=== PATIENT | female | born 1980 | race American Indian/Alaskan Native ===

== ENCOUNTER 2017-10-30 21:19 | Inpatient (IN) | payer SELFPAY ==
[2017-10-30] MEDS ORDERED: TYLENOL ONE (22:20)
[2017-10-30 22:50] LABS: Hematocrit 29.3 % (30.3-42.9); Hemoglobin 9.8 gm/dl (10.1-14.3); Mean Corpuscular HGB Conc 34 % (30-34); Mean Corpuscular Volume 77 fl (79-97); Platelet Count 458 K/mm3 (140-440); Red Blood Count 3.82 M/mm3 (3.65-5.03)
[2017-10-30 22:51] LABS: Mean Corpuscular Hemoglobin 26 pg (28-32)
[2017-10-30 23:10] LABS: BUN/Creatinine Ratio 11; Blood Urea Nitrogen 16 mg/dL (7-17); Calcium 9.1 mg/dL (8.4-10.2); Hemolysis Index 5
--- NOTE | 2017-10-30 23:52 | XRay Report ---
FINAL REPORT PROCEDURE: XR SPINE LUMBOSACRAL 2-3V TECHNIQUE: Lumbar spine radiographs, frontal and lateral views. CPT 44277 HISTORY: lower back pain COMPARISON: No prior studies are available for comparison. FINDINGS: Alignment: Normal . Vertebral body heights/Disk spaces: Normal . Fracture(s): None . Facets: Normal . Bone mineralization: Moderate degree marginal osteophyte formation is noted at L2-3 on the left.. IMPRESSION: Moderate degree marginal osteophyte formation at L2-3 Otherwise unremarkable study
--- NOTE | 2017-10-31 00:13 | Cat Scan Report ---
FINAL REPORT EXAM: CT HEAD/BRAIN WO CON HISTORY: head and neck injury COMPARISON: None available. TECHNIQUE: Axial images obtained skull base through vertex. FINDINGS: No acute intracranial hemorrhage, midline shift or pathologic extra axial fluid collection. Mild asymmetry lateral ventricles, benign variant. Ventricles and cisterns are normal in size and configuration for the patient's age. Tomlin-white differentiation preserved. Calvarium grossly intact. Visualized para-nasal sinuses and mastoid air cells are clear. Visualized ocular globes are grossly unremarkable. IMPRESSION: No grossly acute intracranial abnormality.
--- NOTE | 2017-10-31 00:16 | Cat Scan Report ---
FINAL REPORT EXAM: CT CERVICAL SPINE WO CON HISTORY: head and neck injury COMPARISON: None available. TECHNIQUE: Axial images obtained through the cervical spine. Additional sagittal and coronal reformatted images were obtained. FINDINGS: Normal lordotic curvature of the cervical spine. Cervical vertebral body heights are preserved. No acute fracture or traumatic subluxation. Odontoid process, articular pillars and occipital condyles are intact. Mild loss of disc height C4-C5 level. Mild to moderate canal stenosis and moderate bilateral foraminal narrowing due to endplate osteophyte and uncovertebral hypertrophy at that level. IMPRESSION: No acute fracture or subluxation of the cervical spine. Moderate focal degenerative changes C4-C5 level.
[2017-10-31] MEDS ORDERED: TYLENOL PO ONE (01:16)
[2017-10-31 02:32] LABS: Basophils % (Manual) 0 % (0.0-1.8); Hypochromasia 1+; Platelet Estimate Consistent w Auto; Total Cells Counted 100
--- NOTE | 2017-10-31 06:28 | Emergency Department Report ---
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 She slipped and fell 2 days ago. She complained of some upper back pain neck pain and stated she hit her head. She had radiographic imaging prior to my arrival which shows some focal arthritic change but no fracture or subluxation. CT the head was negative. The patient tells me however the reason she came to the emergency department was because of substernal chest pain rather than the fall. This began at about 11 PM last night and was somewhat persistent. She stated that she has some tingling of her hands and her feet. She complains of some vague shortness of breath but no cough. The chest pain was nonpleuritic not associated with diaphoresis nausea or vomiting. She's had no prior chest pain workup. 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 Loss of Consciousness: none Prolonged Down Time?: no Symptoms Prior to Fall: none Location: head, neck, back (upper back) Severity: moderate Quality: aching Context: tripped/slipped Associated Symptoms: denies - Related Data Home Medications Medication Instructions Recorded Confirmed Last Taken Exforge Hct 10-320-25 mg Tab 1 tab PO DAILY 10/30/17 10/30/17 Unknown LORazepam 1 mg PO BID PRN 10/30/17 10/30/17 Unknown Lasix 10 mg PO DAILY 10/30/17 10/30/17 Unknown Xanax 1 mg PO HS 10/30/17 10/30/17 Unknown Allergies Allergy/AdvReac Type Severity Reaction Status Date / Time tramadol Allergy Itching Verified 10/30/17 22:24 ED Review of Systems ROS: Stated complaint: CHEST PAIN Other details as noted in HPI Constitutional: denies: chills, fever Eyes: denies: eye pain, eye discharge, vision change ENT: denies: ear pain, throat pain Respiratory: shortness of breath. denies: cough, wheezing Cardiovascular: chest pain. denies: palpitations Endocrine: no symptoms reported Gastrointestinal: denies: abdominal pain, nausea, diarrhea Genitourinary: denies: urgency, dysuria, discharge Musculoskeletal: denies: back pain, joint swelling, arthralgia Skin: denies: rash, lesions Neurological: denies: headache, weakness, paresthesias Psychiatric: denies: anxiety, depression Hematological/Lymphatic: denies: easy bleeding, easy bruising ED Past Medical Hx - Past Medical History Hx Hypertension: Yes Hx Psychiatric Treatment: Yes (Anxiety) Additional medical history: Obesity - Surgical History Additional Surgical History: Right kidney biopsy, C-sections X 4. - Social History Smoking Status: Never Smoker Substance Use Type: None - Medications Home Medications: Home Medications Medication Instructions Recorded Confirmed Last Taken Type Exforge Hct 10-320-25 mg Tab 1 tab PO DAILY 10/30/17 10/30/17 Unknown History LORazepam 1 mg PO BID PRN 10/30/17 10/30/17 Unknown History Lasix 10 mg PO DAILY 10/30/17 10/30/17 Unknown History Xanax 1 mg PO HS 10/30/17 10/30/17 Unknown History ED Physical Exam - General Limitations: No Limitations General appearance: alert, in no apparent distress - Head Head exam: Present: atraumatic, normocephalic - Eye Eye exam: Present: normal appearance, PERRL, EOMI. Absent: scleral icterus - ENT ENT exam: Present: mucous membranes moist - Neck Neck exam: Present: normal inspection. Absent: tenderness, meningismus - Respiratory Respiratory exam: Present: normal lung sounds bilaterally. Absent: respiratory distress - Cardiovascular Cardiovascular Exam: Present: regular rate, normal rhythm. Absent: systolic murmur, diastolic murmur, rubs, gallop - GI/Abdominal GI/Abdominal exam: Present: soft, normal bowel sounds. Absent: distended, tenderness, guarding, rebound, rigid - Extremities Exam Extremities exam: Present: normal inspection. Absent: tenderness, normal capillary refill, calf tenderness - Back Exam Back exam: Present: normal inspection, other (mild nonfocal) - Neurological Exam Neurological exam: Present: alert, oriented X3, CN II-XII intact. Absent: motor sensory deficit - Psychiatric Psychiatric exam: Present: normal affect, normal mood - Skin Skin exam: Present: warm, dry, intact, normal color. Absent: rash ED Course Vital Signs 10/30/17 10/31/17 10/31/17 22:05 03:30 03:45 Temperature 98.3 F Pulse Rate 80 88 Respiratory 16 16 Rate Blood Pressure 137/85 Blood Pressure 129/95 [Left] O2 Sat by Pulse 99 100 100 Oximetry 10/31/17 10/31/17 10/31/17 04:00 05:00 06:00 Temperature Pulse Rate 84 72 Respiratory 16 12 Rate Blood Pressure 129/95 130/84 127/72 Blood Pressure [Left] O2 Sat by Pulse 100 Oximetry 10/31/17 10/31/17 10/31/17 07:00 07:19 08:04 Temperature Pulse Rate 93 H 66 Respiratory 14 14 15 Rate Blood Pressure 136/66 Blood Pressure [Left] O2 Sat by Pulse 100 100 Oximetry 10/31/17 10/31/17 09:00 10:00 Temperature Pulse Rate 55 L 61 Respiratory 13 16 Rate Blood Pressure 116/62 124/71 Blood Pressure [Left] O2 Sat by Pulse Oximetry - Reevaluation(s) Reevaluation #1: The patient's chest pain score was 0-3. Wrist GOLDEN score was 0. She was nonetheless admitted to the hospitalist service for further evaluation of her chest pain. Her trauma studies did not show anything acute. Further diagnostic evaluation by orthopedics and other diagnostic imaging may be appropriate upon hospitalization. This will be per hospitalist service. ED Medical Decision Making - Lab Data Result diagrams: 10/30/17 22:33 10/30/17 22:33 Laboratory Results - last 24 hr 10/30/17 10/30/17 10/30/17 22:33 22:33 22:33 WBC 8.3 RBC 3.82 Hgb 9.8 L Hct 29.3 L MCV 77 L MCH 26 L MCHC 34 RDW 18.0 H Plt Count 458 H Add Manual Diff Complete Total Counted 100 Seg Neuts % (Manual) 68.0 Band Neutrophils % 0 Lymphocytes % (Manual) 28.0 Reactive Lymphs % (Man) 0 Monocytes % (Manual) 1.0 Eosinophils % (Manual) 3.0 Basophils % (Manual) 0 Metamyelocytes % 0 Myelocytes % 0 Promyelocytes % 0 Blast Cells % 0 Nucleated RBC % Not Reportable Seg Neutrophils # Man 5.6 Band Neutrophils # 0.0 Lymphocytes # (Manual) 2.3 Abs React Lymphs (Man) 0.0 Monocytes # (Manual) 0.1 Eosinophils # (Manual) 0.2 Basophils # (Manual) 0.0 Metamyelocytes # 0.0 Myelocytes # 0.0 Promyelocytes # 0.0 Blast Cells # 0.0 WBC Morphology Not Reportable Hypersegmented Neuts Not Reportable Hyposegmented Neuts Not Reportable Hypogranular Neuts Not Reportable Smudge Cells Not Reportable Toxic Granulation Not Reportable Toxic Vacuolation Not Reportable Dohle Bodies Not Reportable Pelger-Huet Anomaly Not Reportable Edie Rods Not Reportable Platelet Estimate Consistent w auto Clumped Platelets Not Reportable Plt Clumps, EDTA Not Reportable Large Platelets Not Reportable Giant Platelets Not Reportable Platelet Satelliting Not Reportable Plt Morphology Comment Not Reportable RBC Morphology Not Reportable Dimorphic RBCs Not Reportable Polychromasia Not Reportable Hypochromasia 1+ Poikilocytosis Not Reportable Anisocytosis Not Reportable Microcytosis Not Reportable Macrocytosis Not Reportable Spherocytes Not Reportable Pappenheimer Bodies Not Reportable Sickle Cells Not Reportable Target Cells Not Reportable Tear Drop Cells Not Reportable Ovalocytes Not Reportable Helmet Cells Not Reportable Gilliam-Metcal[place] Bodies Not Reportable [place] Rings Not Reportable [place] Cells Not Reportable Bite Cells Not Reportable Crenated Cell Not Reportable Elliptocytes Not Reportable Acanthocytes (Spur) Not Reportable Rouleaux Not Reportable Hemoglobin C Crystals Not Reportable Schistocytes Not Reportable Malaria parasites Not Reportable Abbe Bodies Not Reportable Hem Pathologist Commnt No Sodium 137 Potassium 3.6 Chloride 98.4 Carbon Dioxide 25 Anion Gap 17 BUN 16 Creatinine 1.4 H Estimated GFR 51 BUN/Creatinine Ratio 11 Glucose 93 Calcium 9.1 Troponin T < 0.010 HCG, Qual Negative - EKG Data -: EKG Interpreted by Me EKG shows normal: sinus rhythm, axis, intervals, QRS complexes, ST-T waves Rate: normal - EKG Data Interpretation: nonspecific ST-T wave yu (somewhat low voltage) - Radiology Data Radiology results: report reviewed interpreted by me: Chest x-ray no acute process Critical care attestation.: If time is entered above; I have spent that time in minutes in the direct care of this critically ill patient, excluding procedure time. ED Disposition Clinical Impression: Chest pain Qualifiers: Chest pain type: unspecified Qualified Code(s): R07.9 - Chest pain, unspecified Cervical sprain Qualifiers: Encounter type: initial encounter Qualified Code(s): S13.9XXA - Sprain of joints and ligaments of unspecified parts of neck, initial encounter Lower back pain Qualifiers: Chronicity: unspecified Back pain laterality: unspecified Sciatica presence: without sciatica Qualified Code(s): M54.5 - Low back pain Minor head injury Qualifiers: Encounter type: initial encounter Qualified Code(s): S09.90XA - Unspecified injury of head, initial encounter Disposition: 09 OP ADMIT IP TO THIS HOSP Is pt being admited?: Yes Does the pt Need Aspirin: Yes Condition: Stable Time of Disposition: 13:06
[2017-10-31] MEDS ORDERED: ZOFRAN IV ONE (06:45)
[2017-10-31] MEDS ORDERED: MORPHINE IV ONE (06:45)
[2017-10-31] MEDS ORDERED: ASPIRIN PO ONE (06:45)
[2017-10-31 07:32] LABS: INR 0.93 (0.87-1.13)
[2017-10-31 07:33] LABS: Partial Thromboplastin Time 28.2 Sec. (24.2-36.6)
[2017-10-31 07:38] LABS: Creatine Kinase MB < 1.0 ng/mL (0.0-4.0)
--- NOTE | 2017-10-31 08:24 | XRay Report ---
AP CHEST: HISTORY: chest pain AP view of the chest demonstrates a normal mediastinal and cardiac contour with clear lungs and normal bony and soft tissue structures. IMPRESSION: Unremarkable AP chest.
[2017-10-31] MEDS ORDERED: ATIVAN PO ONE (09:16)
[2017-10-31] MEDS ORDERED: MORPHINE IV PRN (09:53)
[2017-10-31] MEDS: ASPIRIN PO SCH (10:13)
[2017-10-31] MEDS: HEPARIN SUB-Q SCH ×3 (10:46→22:07)
[2017-10-31] MEDS ORDERED: HEPARIN ONE (10:49)
[2017-10-31] MEDS ORDERED: NON-FORMULARY (Lorazepam 1 MG) PO PRN (14:06)
[2017-10-31] MEDS ORDERED: TYLENOL PO PRN (14:09)
[2017-10-31] MEDS ORDERED: ATIVAN PO PRN (14:42)
--- NOTE | 2017-10-31 15:17 | History and Physical Report ---
History of Present Illness Date of examination: 10/31/17 Date of admission: 10/31/17 09:50 Chief complaint: Chest pain History of present illness: 37-year-old -[place] female with past medical history significant for hypertension, anxiety disorder, kidney disease presented to the emergency department with complaints of left-sided chest pain for a day. Pain is pressure like, 10 out of 10 in intensity, with no radiation, associated with shortness of breath and diaphoresis. Patient denied any aggravating or relieving factors. Patient denied cough, fever, palpitation but admitted for leg swelling. The patient has been intermittent. Patient is also complaining she feel 3 days ago at workplace, complaining back pain and CT of the back was done and negative for acute changes. REVIEW OF SYSTEMS: GENERAL: no weight change, no fatigue, no fever HEAD: no head ache EYES: no blurry vision, no acute visual loss EARS: no hearing loss, no discharge, no earache NOSE: no stuffiness, no sneezing, no discharge MOUTH, THROAT AND NECK: no bleeding gums, no sore throat, no swollen neck CARDIAC: As stated in HPI. RESPIRATORY: As stated in the HPI. GI: no decreased appetite, no nausea, no vomiting, no dysphagia, no diarrhea, no constipation, no abdominal pain URINARY: no change in frequency, no urgency, no polyuria, no hematuria, no incontinence MUSCULOSKELETAL: no muscle weakness, no pain, no joint stiffness NEUROLOGIC: no loss of sensation/numbness, no tingling, no tremors, no weakness/ paralysis HEMATOLOGIC: no anemia, no easy bruising SKIN: no rashes ENDOCRINE: no heat/cold intolerance, no polyuria, no polydipsia, no thyroid problems, no diabetes PSYCHIATRIC: +anxiety, no depression, no suicidal ideations Past History Past Medical History: hypertension, other (anxiety) Past Surgical History: , Other (kidney biopsy) Social history: full code. denies: smoking, alcohol abuse, prescription drug abuse, IV drug use Family history: CAD (paternal and maternal grand parents. ), hypertension ( mother) Medications and Allergies Allergies Allergy/AdvReac Type Severity Reaction Status Date / Time tramadol Allergy Itching Verified 10/30/17 22:24 Home Medications Medication Instructions Recorded Confirmed Last Taken Type Exforge Hct 10-320-25 mg Tab 1 tab PO DAILY 10/30/17 10/30/17 Unknown History LORazepam 1 mg PO BID PRN 10/30/17 10/30/17 Unknown History Lasix 10 mg PO DAILY 10/30/17 10/30/17 Unknown History Xanax 1 mg PO HS 10/30/17 10/30/17 Unknown History Active Meds: Active Medications Acetaminophen (Tylenol) 650 mg PO Q6H PRN PRN Reason: Pain, Mild (1-3) Alprazolam (Xanax) 1 mg PO QHS [facility] Aspirin (Aspirin) 325 mg PO QDAY [facility] Last Admin: 10/31/17 10:13 Dose: Not Given Heparin Sodium (Porcine) (Heparin) 5,000 unit SUB-Q Q8HR [facility] Last Admin: 10/31/17 10:46 Dose: 5,000 unit Lorazepam (Ativan) 1 mg PO BID PRN PRN Reason: Anxiety Morphine Sulfate (Morphine) 2 mg IV Q4H PRN PRN Reason: Pain, Moderate (4-6) Last Admin: 10/31/17 14:02 Dose: 2 mg Exam - Physical Exam Narrative exam: Not in cardiopulmonary distress. The patient is morbidly obese. Vital signs as documented. Head exam is unremarkable. No scleral icterus . Neck is without jugular venous distension, thyromegaly, or carotid bruits. Lungs are clear to auscultation. Cardiac exam reveals regular rate and Rhythm. First and second heart sounds normal. No murmurs, rubs or gallops. Abdominal exam reveals normal bowel sounds, no masses, no organomegaly and no aortic enlargement. Extremities are nonedematous and both femoral and pedal pulses are normal. [employer] DEVEL[employer]: Alert and oriented 3. No focal weakness. - Constitutional Vitals: Temp Pulse Resp BP Pulse Ox 98.3 F 61 20 124/71 100 10/30/17 22:05 10/31/17 10:00 10/31/17 14:02 10/31/17 10:00 10/31/17 07:19 Results - Labs CBC & Chem 7: 10/30/17 22:33 10/30/17 22:33 Labs: Laboratory Last Values WBC 8.3 K/mm3 (4.5-11.0) 10/30/17 22:33 RBC 3.82 M/mm3 (3.65-5.03) 10/30/17 22:33 Hgb 9.8 gm/dl (10.1-14.3) L 10/30/17 22:33 Hct 29.3 % (30.3-42.9) L 10/30/17 22:33 MCV 77 fl (79-97) L 10/30/17 22:33 MCH 26 pg (28-32) L 10/30/17:33 MCHC 34 % (30-34) 10/30/17: RDW 18.0 % (13.2-15.2) H 10/30/17: Plt Count 458 K/mm3 (140-440) H 10/30/17 22:33 Add Manual Diff Complete 10/30/17: Total Counted 100 10/30/17:33 Seg Neuts % (Manual) 68.0 % (40.0-70.0) 10/30/17 22:33 Band Neutrophils % 0 % 10/30/17 22:33 Lymphocytes % (Manual) 28.0 % (13.4-35.0) 10/30/17 22:33 Reactive Lymphs % (Man) 0 % 10/30/17 22:33 Monocytes % (Manual) 1.0 % (0.0-7.3) 10/30/17:33 Eosinophils % (Manual) 3.0 % (0.0-4.3) 10/30/17:33 Basophils % (Manual) 0 % (0.0-1.8) 10/30/17 22:33 Metamyelocytes % 0 % 10/30/17:33 Myelocytes % 0 % 10/30/17 22:33 Promyelocytes % 0 % 10/30/17 22:33 Blast Cells % 0 % 10/30/17 22:33 Nucleated RBC % Not Reportable 10/30/17: Seg Neutrophils # Man 5.6 K/mm3 (1.8-7.7) 10/30/17 22:33 Band Neutrophils # 0.0 K/mm3 10/30/17:33 Lymphocytes # (Manual) 2.3 K/mm3 (1.2-5.4) 10/30/17 22:33 Abs React Lymphs (Man) 0.0 K/mm3 10/30/17 22:33 Monocytes # (Manual) 0.1 K/mm3 (0.0-0.8) 10/30/17 22:33 Eosinophils # (Manual) 0.2 K/mm3 (0.0-0.4) 10/30/17 22:33 Basophils # (Manual) 0.0 K/mm3 (0.0-0.1) 10/30/17 22:33 Metamyelocytes # 0.0 K/mm3 10/30/17 22:33 Myelocytes # 0.0 K/mm3 10/30/17 22:33 Promyelocytes # 0.0 K/mm3 10/30/17 22:33 Blast Cells # 0.0 K/mm3 10/30/17 22:33 WBC Morphology Not Reportable 10/30/17 22:33 Hypersegmented Neuts Not Reportable 10/30/17 22:33 Hyposegmented Neuts Not Reportable 10/30/17 22:33 Hypogranular Neuts Not Reportable 10/30/17 22:33 Smudge Cells Not Reportable 10/30/17 22:33 Toxic Granulation Not Reportable 10/30/17 22:33 Toxic Vacuolation Not Reportable 10/30/17 22:33 Dohle Bodies Not Reportable 10/30/17 22:33 Pelger-Huet Anomaly Not Reportable 10/30/17 22:33 Edie Rods Not Reportable 10/30/17 22:33 Platelet Estimate Consistent w auto 10/30/17 22:33 Clumped Platelets Not Reportable 10/30/17 22:33 Plt Clumps, EDTA Not Reportable 10/30/17 22:33 Large Platelets Not Reportable 10/30/17 22:33 Giant Platelets Not Reportable 10/30/17 22:33 Platelet Satelliting Not Reportable 10/30/17 22:33 Plt Morphology Comment Not Reportable 10/30/17 22:33 RBC Morphology Not Reportable 10/30/17 22:33 Dimorphic RBCs Not Reportable 10/30/17 22:33 Polychromasia Not Reportable 10/30/17 22:33 Hypochromasia 1+ 10/30/17 22:33 Poikilocytosis Not Reportable 10/30/17 22:33 Anisocytosis Not Reportable 10/30/17 22:33 Microcytosis Not Reportable 10/30/17 22:33 Macrocytosis Not Reportable 10/30/17 22:33 Spherocytes Not Reportable 10/30/17 22:33 Pappenheimer Bodies Not Reportable 10/30/17 22:33 Sickle Cells Not Reportable 10/30/17 22:33 Target Cells Not Reportable 10/30/17 22:33 Tear Drop Cells Not Reportable 10/30/17 22:33 Ovalocytes Not Reportable 10/30/17 22:33 Helmet Cells Not Reportable 10/30/17 22:33 Gilliam-[place] Bodies Not Reportable 10/30/17 22:33 [place] Rings Not Reportable 10/30/17 22:33 Eric Cells Not Reportable 10/30/17 22:33 Bite Cells Not Reportable 10/30/17 22:33 Crenated Cell Not Reportable 10/30/17 22:33 Elliptocytes Not Reportable 10/30/17 22:33 Acanthocytes (Spur) Not Reportable 10/30/17 22:33 Rouleaux Not Reportable 10/30/17 22:33 Hemoglobin C Crystals Not Reportable 10/30/17 22:33 Schistocytes Not Reportable 10/30/17 22:33 Malaria parasites Not Reportable 10/30/17 22:33 Abbe Bodies Not Reportable 10/30/17 22:33 Hem Pathologist Commnt No 10/30/17 22:33 PT 12.9 Sec. (12.2-14.9) 10/31/17 07:09 INR 0.93 (0.87-1.13) 10/31/17 07:09 APTT 28.2 Sec. (24.2-36.6) 10/31/17 07:09 Sodium 137 mmol/L (137-145) 10/30/17 22:33 Potassium 3.6 mmol/L (3.6-5.0) 10/30/17 22:33 Chloride 98.4 mmol/L (98-107) 10/30/17 22:33 Carbon Dioxide 25 mmol/L (22-30) 10/30/17 22:33 Anion Gap 17 mmol/L 10/30/17 22:33 BUN 16 mg/dL (7-17) 10/30/17 22:33 Creatinine 1.4 mg/dL (0.7-1.2) H 10/30/17 22:33 Estimated GFR 51 ml/min 10/30/17 22:33 BUN/Creatinine Ratio 11 % 10/30/17 22:33 Glucose 93 mg/dL (65-100) 10/30/17 22:33 Calcium 9.1 mg/dL (8.4-10.2) 10/30/17 22:33 Magnesium 1.90 mg/dL (1.7-2.3) 10/31/17 07:02 Total Creatine Kinase 137 units/L (30-135) H 10/31/17 07:02 CK-MB (CK-2) < 1.0 ng/mL (0.0-4.0) 10/31/17 07:02 CK-MB (CK-2) Rel Index 0.7 (0-4) 10/31/17 07:02 Troponin T < 0.010 ng/mL (0.00-0.029) 10/31/17 07:02 NT-Pro-B Natriuret Pep 75.87 pg/mL (0-450) 10/31/17 07:02 HCG, Qual Negative (Negative) 10/30/17: Blood Type O POSITIVE 10/31/17 07:09 Antibody Screen Negative 10/31/17 07:09 Assessment and Plan Assessment and plan: 37 year old -[place] female with past medical history significant for anxiety and HTN Presented to the emergency department complaining of left-sided chest pain of one-day duration. Chest pain - 2 sets of troponins were negative, EKG no ST elevation FL - We'll do stress test in the morning - On aspirin and pain control History of fell and back pain - CT negative - On Tylenol for pain control Hypertension - Blood pressure is controlled without BP meds - We'll restart as needed Anxiety disorder -Continue Xanax and ativan DVT prophylaxis - On heparin Disposition - Admitted to telemetry floor Advance Directives: Yes VTE prophylaxis?: Chemical Plan of care discussed with patient/family: Yes
[2017-10-31] MEDS ORDERED: XANAX 1 MG PO SCH (22:00)
[2017-10-31] MEDS: XANAX PO SCH (22:07)
[2017-10-31] MEDS: PERCOCET 5/325 PO PRN (22:07)
[2017-11-01] MEDS: HEPARIN SUB-Q SCH ×3 (05:25→22:40)
[2017-11-01] MEDS: PERCOCET 5/325 PO PRN ×2 (05:25→13:29)
[2017-11-01 06:17] LABS: Calcium 8.7 mg/dL (8.4-10.2)
[2017-11-01] MEDS ORDERED: BANOPHEN PO PRN (09:00)
[2017-11-01] MEDS: ASPIRIN PO SCH (09:24)
[2017-11-01] MEDS ORDERED: BENADRYL IV NR (09:30)
[2017-11-01] MEDS ORDERED: LEXISCAN IV ONE ×3 (11:18→11:40)
--- NOTE | 2017-11-01 14:39 | Discharge Summary ---
Providers - Providers Date of Admission: 10/31/17 09:50 Date of discharge: 11/02/17 Attending physician: GENA ABERNATHY MD Primary care physician: DON MENJIVAR MD Hospitalization Reason for admission: Chest pain Condition: Stable Disposition: DC-01 TO HOME OR SELFCARE Time spent for discharge: 32 minutes - Discharge Diagnoses (1) Cervical sprain Status: Acute Qualifiers: Encounter type: initial encounter Qualified Code(s): S13.9XXA - Sprain of joints and ligaments of unspecified parts of neck, initial encounter (2) Chest pain Status: Acute Qualifiers: Chest pain type: unspecified Qualified Code(s): R07.9 - Chest pain, unspecified (3) Lower back pain Status: Acute Qualifiers: Chronicity: unspecified Back pain laterality: unspecified Sciatica presence: without sciatica Qualified Code(s): M54.5 - Low back pain Core Measure Documentation - Palliative Care Palliative Care/ Comfort Measures: Not Applicable - Core Measures Any of the following diagnoses?: none Exam - Physical Exam Narrative exam: Not in cardiopulmonary distress. The patient is morbidly obese. Vital signs as documented. Head exam is unremarkable. No scleral icterus . Neck is without jugular venous distension, thyromegaly, or carotid bruits. Lungs are clear to auscultation. Cardiac exam reveals regular rate and Rhythm. First and second heart sounds normal. No murmurs, rubs or gallops. Abdominal exam reveals normal bowel sounds, no masses, no organomegaly and no aortic enlargement. Extremities are nonedematous and both femoral and pedal pulses are normal. BIOMED TECH: Alert and oriented 3. No focal weakness. - Constitutional Vitals: Temp Pulse Resp BP Pulse Ox 98.2 F 49 L 20 96/47 98 11/01/17 07:29 11/01/17 07:29 11/01/17 07:29 11/01/17 07:29 11/01/17 07:29 Plan Activity: no restrictions Weight Bearing Status: Full Weight Bearing Diet: regular Additional Instructions: F/U at [facility] in 1-2 weeks. Follow up with: PRIMARY CARE, [Primary Care Provider] - 3-5 Days Prescriptions: Cyclobenzaprine [Flexeril] 10 mg PO TID PRN #90 tablet PRN Reason: Muscle Spasm diphenhydrAMINE [Benadryl CAP] 50 mg PO Q6H PRN #15 capsule PRN Reason: Itching oxyCODONE /ACETAMINOPHEN [Percocet 5/325 mg] 2 tab PO Q6H PRN #12 tablet PRN Reason: Pain, Moderate (4-6)
[2017-11-01] MEDS ORDERED: BENADRYL PO PRN (15:18)
[2017-11-01] MEDS: XANAX PO SCH (22:40)
[2017-11-01] MEDS ORDERED: PERCOCET 5/325 PO PRN (22:51)
[2017-11-02] MEDS ORDERED: APRESOLINE IV PRN (01:13)
[2017-11-02] MEDS: HEPARIN SUB-Q SCH (06:28)
[2017-11-02 07:03] VITALS: BP 108/48
--- NOTE | 2017-11-02 07:49 | Progress Note ---
Assessment and Plan Assessment and plan: 37 year old -Citizen Of [place] female with past medical history significant for anxiety and HTN Presented to the emergency department complaining of left-sided chest pain of one-day duration. Chest pain - 2 sets of troponins were negative, EKG no ST elevation CO - We'll do stress test this AM - On aspirin and pain control History of fell and back pain - CT negative - On Tylenol for pain control Hypertension - Blood pressure is controlled without BP meds - We'll restart as needed Anxiety disorder -Continue Xanax and ativan DVT prophylaxis - On heparin Disposition - Discharge if stress test is negative. - Patient Problems (1) Cervical sprain Current Visit: Yes Status: Acute Qualifiers: Encounter type: initial encounter Qualified Code(s): S13.9XXA - Sprain of joints and ligaments of unspecified parts of neck, initial encounter (2) Chest pain Current Visit: Yes Status: Acute Qualifiers: Chest pain type: unspecified Qualified Code(s): R07.9 - Chest pain, unspecified (3) Lower back pain Current Visit: Yes Status: Acute Qualifiers: Chronicity: unspecified Back pain laterality: unspecified Sciatica presence: without sciatica Qualified Code(s): M54.5 - Low back pain History Interval history: patient was seen and evaluated this morning, chest pain subsided. Hospitalist Physical - Physical exam Narrative exam: Not in cardiopulmonary distress. The patient is morbidly obese. Vital signs as documented. Head exam is unremarkable. No scleral icterus . Neck is without jugular venous distension, thyromegaly, or carotid bruits. Lungs are clear to auscultation. Cardiac exam reveals regular rate and Rhythm. First and second heart sounds normal. No murmurs, rubs or gallops. Abdominal exam reveals normal bowel sounds, no masses, no organomegaly and no aortic enlargement. Extremities are nonedematous and both femoral and pedal pulses are normal. RADIO ANNOUNCER: Alert and oriented 3. No focal weakness. - Constitutional Vitals: Temp Pulse Resp BP Pulse Ox 98.4 F 62 18 108/48 94 11/02/17 05:12 11/02/17 00:00 11/02/17 05:12 11/02/17 05:12 11/01/17 19:38 Results - Labs CBC & Chem 7: 10/30/17 22:33 11/01/17 04:18 Labs: Laboratory Last Values WBC 8.3 K/mm3 (4.5-11.0) 10/30/17 22:33 RBC 3.82 M/mm3 (3.65-5.03) 10/30/17 22:33 Hgb 9.8 gm/dl (10.1-14.3) L 10/30/17 22:33 Hct 29.3 % (30.3-42.9) L 10/30/17 22:33 MCV 77 fl (79-97) L 10/30/17 22:33 MCH 26 pg (28-32) L 10/30/17 22:33 MCHC 34 % (30-34) 10/30/17 22:33 RDW 18.0 % (13.2-15.2) H 10/30/17 22:33 Plt Count 458 K/mm3 (140-440) H 10/30/17 22:33 Add Manual Diff Complete 10/30/17 22:33 Total Counted 100 10/30/17 22:33 Seg Neuts % (Manual) 68.0 % (40.0-70.0) 10/30/17 22:33 Band Neutrophils % 0 % 10/30/17 22:33 Lymphocytes % (Manual) 28.0 % (13.4-35.0) 10/30/17 22:33 Reactive Lymphs % (Man) 0 % 10/30/17 22:33 Monocytes % (Manual) 1.0 % (0.0-7.3) 10/30/17 22:33 Eosinophils % (Manual) 3.0 % (0.0-4.3) 10/30/17 22:33 Basophils % (Manual) 0 % (0.0-1.8) 10/30/17 22:33 Metamyelocytes % 0 % 10/30/17 22:33 Myelocytes % 0 % 10/30/17 22:33 Promyelocytes % 0 % 10/30/17 22:33 Blast Cells % 0 % 10/30/17 22:33 Nucleated RBC % Not Reportable 10/30/17 22:33 Seg Neutrophils # Man 5.6 K/mm3 (1.8-7.7) 10/30/17 22:33 Band Neutrophils # 0.0 K/mm3 10/30/17 22:33 Lymphocytes # (Manual) 2.3 K/mm3 (1.2-5.4) 10/30/17 22:33 Abs React Lymphs (Man) 0.0 K/mm3 10/30/17 22:33 Monocytes # (Manual) 0.1 K/mm3 (0.0-0.8) 10/30/17 22:33 Eosinophils # (Manual) 0.2 K/mm3 (0.0-0.4) 10/30/17 22:33 Basophils # (Manual) 0.0 K/mm3 (0.0-0.1) 10/30/17 22:33 Metamyelocytes # 0.0 K/mm3 10/30/17 22:33 Myelocytes # 0.0 K/mm3 10/30/17 22:33 Promyelocytes # 0.0 K/mm3 10/30/17 22:33 Blast Cells # 0.0 K/mm3 10/30/17 22:33 WBC Morphology Not Reportable 10/30/17 22:33 Hypersegmented Neuts Not Reportable 10/30/17 22:33 Hyposegmented Neuts Not Reportable 10/30/17 22:33 Hypogranular Neuts Not Reportable 10/30/17 22:33 Smudge Cells Not Reportable 10/30/17 22:33 Toxic Granulation Not Reportable 10/30/17 22:33 Toxic Vacuolation Not Reportable 10/30/17 22:33 Dohle Bodies Not Reportable 10/30/17 22:33 Pelger-Huet Anomaly Not Reportable 10/30/17 22:33 Edie Rods Not Reportable 10/30/17 22:33 Platelet Estimate Consistent w auto 10/30/17 22:33 Clumped Platelets Not Reportable 10/30/17 22:33 Plt Clumps, EDTA Not Reportable 10/30/17 22:33 Large Platelets Not Reportable 10/30/17 22:33 Giant Platelets Not Reportable 10/30/17 22:33 Platelet Satelliting Not Reportable 10/30/17 22:33 Plt Morphology Comment Not Reportable 10/30/17 22:33 RBC Morphology Not Reportable 10/30/17 22:33 Dimorphic RBCs Not Reportable 10/30/17 22:33 Polychromasia Not Reportable 10/30/17 22:33 Hypochromasia 1+ 10/30/17 22:33 Poikilocytosis Not Reportable 10/30/17 22:33 Anisocytosis Not Reportable 10/30/17 22:33 Microcytosis Not Reportable 10/30/17 22:33 Macrocytosis Not Reportable 10/30/17 22:33 Spherocytes Not Reportable 10/30/17 22:33 Pappenheimer Bodies Not Reportable 10/30/17 22:33 Sickle Cells Not Reportable 10/30/17 22:33 Target Cells Not Reportable 10/30/17 22:33 Tear Drop Cells Not Reportable 10/30/17 22:33 Ovalocytes Not Reportable 10/30/17 22:33 Helmet Cells Not Reportable 10/30/17 22:33 Gilliam-Gorst Bodies Not Reportable 10/30/17 22:33 [place] Rings Not Reportable 10/30/17 22:33 [place] Cells Not Reportable 10/30/17 22:33 Bite Cells Not Reportable 10/30/17 22:33 Crenated Cell Not Reportable 10/30/17 22:33 Elliptocytes Not Reportable 10/30/17 22:33 Acanthocytes (Spur) Not Reportable 10/30/17 22:33 Rouleaux Not Reportable 10/30/17 22:33 Hemoglobin C Crystals Not Reportable 10/30/17 22:33 Schistocytes Not Reportable 10/30/17 22:33 Malaria parasites Not Reportable 10/30/17 22:33 Abbe Bodies Not Reportable 10/30/17 22:33 Hem Pathologist Commnt No 10/30/17 22:33 PT 12.9 Sec. (12.2-14.9) 10/31/17 07:09 INR 0.93 (0.87-1.13) 10/31/17 07:09 APTT 28.2 Sec. (24.2-36.6) 10/31/17 07:09 Sodium 140 mmol/L (137-145) 11/01/17 04:18 Potassium 3.8 mmol/L (3.6-5.0) 11/01/17 04:18 Chloride 101.7 mmol/L (98-107) 11/01/17 04:18 Carbon Dioxide 26 mmol/L (22-30) 11/01/17 04:18 Anion Gap 16 mmol/L 11/01/17 04:18 BUN 15 mg/dL (7-17) 11/01/17 04:18 Creatinine 1.4 mg/dL (0.7-1.2) H 11/01/17 04:18 Estimated GFR 51 ml/min 11/01/17 04:18 BUN/Creatinine Ratio 11 % 11/01/17 04:18 Glucose 79 mg/dL (65-100) 11/01/17 04:18 Calcium 8.7 mg/dL (8.4-10.2) 11/01/17 04:18 Magnesium 1.90 mg/dL (1.7-2.3) 10/31/17 07:02 Total Creatine Kinase 137 units/L (30-135) H 10/31/17 07:02 CK-MB (CK-2) < 1.0 ng/mL (0.0-4.0) 10/31/17 07:02 CK-MB (CK-2) Rel Index 0.7 (0-4) 10/31/17 07:02 Troponin T < 0.010 ng/mL (0.00-0.029) 10/31/17 07:02 NT-Pro-B Natriuret Pep 75.87 pg/mL (0-450) 10/31/17 07:02 HCG, Qual Negative (Negative) 10/30/17 22:33 Blood Type O POSITIVE 10/31/17 07:09 Antibody Screen Negative 10/31/17 07:09
--- NOTE | 2017-11-02 23:04 | Treadmill Report ---
NUCLEAR CARDIAC IMAGING REPORT INDICATION FOR PROCEDURE: Chest pain. Informed consent was obtained. Vasodilator stress was achieved with the intravenous administration of 0.4 mg of Lexiscan per protocol. Rest and stress nuclear cardiac imaging were performed following the intravenous administration of 10 and 28 mci of technetium-99m Myoview respectively per protocol. Images were obtained in a 180-degree arc from 45 degrees SARABIA to 45 degrees LPO. After data acquisition and reconstruction, the images were processed and reoriented into the vertical long, horizontal long, and horizontal short axis slices. A polar color map of the horizontal short axis slices was generated and reviewed. The rotating planar images reviewed in cinematic format on the computer console. Gated SPECT imaging demonstrates a post-stress left ventricular ejection fraction of 68% with normal wall motion. Myocardial perfusion imaging demonstrates no significant cavity change between stress and rest. No significant stress induced perfusion defects are seen. Nuclear cardiac imaging demonstrates grossly normal post-stress left ventricular systolic function with no significant evidence for myocardial ischemia or necrosis. [facility]# [id number] STEPHANIE/LISA BERNAL
== END 2017-11-02 10:55 | disposition home or self-care (01) | DRG 313 ==
LOC: ED 21:19 → 4A 10-31 09:50
PROVIDERS: ADMIT Internal Medicine; ATTEND Internal Medicine
DX: R07.9 Chest pain, unspecified (principal); Z68.42 Body mass index [BMI] 45.0-49.9, adult; S13.4XXA Sprain of ligaments of cervical spine, initial encounter; M54.5 Low back pain; F41.9 Anxiety disorder, unspecified; I10 Essential (primary) hypertension; E66.9 Obesity, unspecified; S09.90XA Unspecified injury of head, initial encounter; W01.0XXA Fall on same level from slipping, tripping and stumbling without subsequent striking against object, initial encounter; Y93.89 Activity, other specified; Y92.89 Other specified places as the place of occurrence of the external cause; Y99.8 Other external cause status; Z82.49 Family history of ischemic heart disease and other diseases of the circulatory system; Z79.899 Other long term (current) drug therapy
CPT/HCPCS: 36415; 70450; 71045; 72100; 72125; 78452; 80048; 82550; 82553; 83735; 83880; 84484; 84703; 85007; 85025; 85610; 85730; 86850; 86900; 86901; 93005; 93010; 93017; 96374; 96375; A9502; J1200; J1644; J2270; J2405; J2785; Q0163